=== PATIENT | female | born 1945 | race Caucasian/White ===

== ENCOUNTER 2016-06-29 18:17 | Emergency (ER) | payer OTHER ==
[~2016-06-29] VITALS: Ht 167.6 cm; Wt 105.5 kg
[2016-06-29 19:56] LABS: HEMATOCRIT 41.9 % (36.0-46.0); MCH 30.4 PG (29.0-34.0); MCHC 32.7 G/DL (30.0-36.0); MCV 92.9 FL (83-99); MEAN PLAT.VOLUME 10.1 uM^3 (9.5-12.4); PLATELET COUNT 168 K/uL (156-360); RBC DIS.WIDTH-CV 13.4 % (11.8-14.6); RBC DIS.WIDTH-SD 44.5 % (39-53); RED BLOOD COUNT 4.51 M/uL (3.80-5.20)
[2016-06-29 20:07] LABS: CHLORIDE 106 mEq/L (99-109); POTASSIUM 3.7 mEq/L (3.7-5.4); SODIUM 143 mEq/L (136-147)
[2016-06-29 20:08] LABS: GLUCOSE 103 mg/dL (70-99)
[2016-06-29 20:10] LABS: ANION GAP 10 MEQ/L (2-14)
[2016-06-29 20:12] LABS: GFR ESTIMATE (CALCULATED) > 59 mL/min/
[2016-06-29 20:13] LABS: UREA NITROGEN (BUN) 11 mg/dL (9-23)
[2016-06-29 20:46] LABS: ADD MIUA? YES; BILIRUBIN NEGATIVE; BLOOD NEGATIVE; COLOR DK YELLOW ((YELLOW)); GLUCOSE (STRIP) NEGATIVE; KETONES TRACE; LEUKOCYTES MODERATE; NITRITE NEGATIVE; PH, URINE 5.5 (5-8); PROTEIN (STRIP) TRACE; SPECIFIC GRAVITY 1.028 (1.000-1.030); UROBILINOGEN 0.2 MG/DL (0.2-1.0)
[2016-06-29 21:10] LABS: TROP-I INTERPRETATION NEGATIVE; TROPONIN-I < 0.01 ng/mL (0.0-0.30)
[2016-06-29 21:26] LABS: BACTERIA 2+ /HPF; CASTS NONE SEEN /LPF; CRYSTALS NONE SEEN; EPITHELIAL CELLS 3+ /HPF; MUCUS 3+ /LPF; RED BLOOD CELLS 0-5 /HPF (0-5); UCUL ADDED? YES
[2016-06-30 00:27] VITALS: BP 130/64
== END 2016-06-30 00:28 | disposition home or self-care (01) ==
LOC: EME 18:17
PROVIDERS: Emergency Medicine
DX: R27.0 Ataxia, unspecified (principal); R41.0 Disorientation, unspecified; R44.0 Auditory hallucinations; Z86.73 Personal history of transient ischemic attack (TIA), and cerebral infarction without residual deficits
CPT/HCPCS: 70450; 71020; 80048; 81003; 84484; 85027; 87086 GA; 93005; 99281; 99284

== ENCOUNTER 2017-07-27 08:15 | Emergency (ER) | payer OTHER ==
[~2017-07-27] VITALS: Ht 165.1 cm; Wt 100.5 kg
[2017-07-27] MEDS ORDERED: CILOXAN 0.100 DROP/5 BOTH EYES (11:03)
[2017-07-27 11:21] VITALS: BP 152/79
== END 2017-07-27 11:27 | disposition home or self-care (01) ==
LOC: EME 08:15
DX: H10.9 Unspecified conjunctivitis (principal); Z86.73 Personal history of transient ischemic attack (TIA), and cerebral infarction without residual deficits; Z85.41 Personal history of malignant neoplasm of cervix uteri
CPT/HCPCS: 99281; 99284

== ENCOUNTER 2018-01-01 14:14 | Emergency (ER) | payer OTHER ==
[~2018-01-01] VITALS: Ht 165.1 cm; Wt 80.0 kg
[~2018-01-01 14:14] MED LIST: CILOXAN 0.100 DROP/5 BOTH EYES
[2018-01-01 15:36] LABS: APPEARANCE CLEAR ((CLEAR)); BILIRUBIN NEGATIVE; BLOOD NEGATIVE; COLOR YELLOW ((YELLOW)); GLUCOSE (STRIP) NEGATIVE; KETONES NEGATIVE; LEUKOCYTES NEGATIVE; NITRITE NEGATIVE; PROTEIN (STRIP) NEGATIVE; SPECIFIC GRAVITY 1.025 (1.000-1.030)
[2018-01-01 15:40] LABS: HEMATOCRIT 40.2 % (36.0-46.0); HEMOGLOBIN 13.6 G/DL (11.9-15.5); MCHC 33.8 G/DL (30.0-36.0); MCV 91.6 FL (83-99); PLATELET COUNT 156 K/uL (156-360); RBC DIS.WIDTH-CV 13.5 % (11.8-14.6); RED BLOOD COUNT 4.39 M/uL (3.80-5.20); WHITE BLOOD COUNT 5.2 K/uL (4.1-10.2)
[2018-01-01 15:48] LABS: ALBUMIN 3.9 g/dL (3.2-4.8)
[2018-01-01 15:49] LABS: CHLORIDE 106 mEq/L (99-109); POTASSIUM 3.8 mEq/L (3.7-5.4); SODIUM 143 mEq/L (136-147)
[2018-01-01 15:50] LABS: AMPHETAMINE NEGATIVE (500 ng/mL); BARBITURATES NEGATIVE (200 ng/mL); BENZODIAZEPINES NEGATIVE (150 ng/mL); BUPRENORPHINE NEGATIVE (10 ng/mL); COCAINE NEGATIVE (150 ng/mL); METHADONE NEGATIVE (200 ng/mL); METHAMPHETAMINE NEGATIVE (500 ng/mL); OPIATES (MORPHINE) NEGATIVE (100 ng/mL); OXYCODONE NEGATIVE (100 ng/mL); PHENCYCLIDINE NEGATIVE (25 ng/mL); PROPOXYPHENE NEGATIVE (300 ng/mL); THC CANNABINOIDS NEGATIVE (50 ng/mL); TRICYCLIC ANTIDEPRESSANTS NEGATIVE (300 ng/mL)
[2018-01-01 15:51] LABS: GLUCOSE 138 mg/dL (70-99); TOTAL PROTEIN 6.4 g/dL (6.4-8.3)
[2018-01-01 15:53] LABS: TOTAL BILIRUBIN 0.6 mg/dL (0.0-1.0)
[2018-01-01 15:54] LABS: ALKALINE PHOSPHATASE 65 IU/L (3-129); SERUM ETHYL ALCOHOL < 10 mg/dL
[2018-01-01 15:55] LABS: CREATININE 0.9 mg/dL (0.6-1.3); GFR ESTIMATE (CALCULATED) > 59 mL/min/
[2018-01-01 15:56] LABS: AST (GOT) 17 IU/L (2-34); UREA NITROGEN (BUN) 16 mg/dL (9-23)
[2018-01-01 15:58] LABS: ALT (GPT) 16 IU/L (3-49)
[2018-01-01 17:22] LABS: THYROTROPIN (TSH) 1.5 MIU/L (0.4-5.5)
[2018-01-01 18:12] VITALS: BP 172/77
== END 2018-01-01 18:13 | disposition home or self-care (01) ==
LOC: EME 14:14
PROVIDERS: Emergency Medicine
DX: F22 Delusional disorders (principal); Z04.6 Encounter for general psychiatric examination, requested by authority; Z86.73 Personal history of transient ischemic attack (TIA), and cerebral infarction without residual deficits; Z85.41 Personal history of malignant neoplasm of cervix uteri
CPT/HCPCS: 80053; 81003; 84443; 85027; 87086; 90837; 99281; 99283; G0480